=== PATIENT | female | born 1955 | race Caucasian/White ===

== ENCOUNTER → 2017-04-22 | Outpatient (CLI) | payer OTHER ==
--- NOTE | 2017-04-22 15:20 | DIAGNOSTIC IMAGING REPORT ---
CHEST 2 VIEWS ROUTINE CLINICAL HISTORY: Persistent cough COMPARISON STUDY: No previous studies for comparison. FINDINGS: There is a mild scoliosis. The heart is normal in size. There is no failure. There is no focal pulmonary consolidation. There are no pleural effusions.[ IMPRESSION: No active disease in the chest. Electronically signed by: Duane Geiger M.D. 04/22/2017 3:19 PM Dictated Date/Time: 04/22/2017 3:18 PM
== END | disposition home or self-care (01) ==
LOC: C.RADBC 14:37
PROVIDERS: ATTEND Family Medicine
DX: R05 Cough (principal)

== ENCOUNTER → 2017-07-12 | Outpatient (CLI) | payer OTHER ==
[2017-07-12 13:32] LABS: BASO % 0.8 %; BASO ABS # 0.04 K/uL (0-0.2); EOS % 2.8 %; EOS ABS # 0.15 K/uL (0-0.5); HEMATOCRIT 40.5 % (37-47); HEMOGLOBIN 13.7 g/dL (12.0-16.0); LYMPH % 19.9 %; LYMPH ABS # 1.05 K/uL (1.2-3.4); MEAN CELL VOLUME 89.4 fL (80-100); MEAN CORPUSCULAR HEMOGLOBIN 30.2 pg (25-34); MEAN CORPUSCULAR HGB CONC 33.8 g/dl (32-36); MEAN PLATELET VOLUME 9.8 fL (7.4-10.4); MONO % 14.6 %; MONO ABS # 0.77 K/uL (0.11-0.59); NEUT % 61.9 %; NEUT ABS # 3.27 K/uL (1.4-6.5); PLATELET COUNT 209 K/uL (130-400); RED CELL DISTRIBUTION WIDTH CV 13.8 % (11.5-14.5); RED CELL DISTRIBUTION WIDTH SD 45.1 fL (36.4-46.3); WHITE BLOOD COUNT 5.28 K/uL (4.8-10.8)
[2017-07-12 14:22] LABS: ALBUMIN 3.9 gm/dl (3.4-5.0); ALT/SGPT 33 U/L (12-78); AST/SGOT 30 U/L (15-37); BLOOD UREA NITROGEN 20 mg/dl (7-18); CALCIUM 9.4 mg/dl (8.5-10.1); CARBON DIOXIDE 27 mmol/L (21-32); CREATININE 1.13 mg/dl (0.60-1.20); GLUCOSE 100 mg/dl (70-99); SODIUM 138 mmol/L (136-145)
[2017-07-12 14:24] LABS: ALKALINE PHOSPHATASE 54 U/L (45-117); TOTAL PROTEIN 7.2 gm/dl (6.4-8.2)
== END | disposition home or self-care (01) ==
LOC: C.LABBC 10:30
PROVIDERS: ATTEND Psychiatry & Neurology Neurology
DX: G35 Multiple sclerosis (principal)

== ENCOUNTER → 2017-08-05 | Outpatient (CLI) | payer OTHER ==
--- NOTE | 2017-08-05 19:30 | DIAGNOSTIC IMAGING REPORT ---
MRI OF THE BRAIN WITHOUT CONTRAST CLINICAL HISTORY: G35 Multiple sclerosis TRANSIENT LOSS OF VISION. COMPARISON STUDY: None. FINDINGS: Sagittal T1, axial diffusion, proton density and T2 weighted axial, coronal FLAIR, and axial T1-weighted images were acquired. No intra or extra-axial mass lesions are visualized Axial diffusion-weighted images reveal no evidence of acute or subacute infarction. There is no evidence of ventricular dilatation. Proton density T2-weighted and FLAIR images reveal several foci of increased T2 and FLAIR signal within the white matter. The largest lesions are a 6 mm focus adjacent to the atrium of the right lateral ventricle, as well as a 7 mm focus just medial to the left external capsule. The lesions are nonspecific in appearance, and could be secondary to small vessel disease, or multiple sclerosis given that this patient carries this diagnosis There are no abnormal flow voids. Inflammatory changes are present within the maxillary sinuses. There is a small left maxillary sinus air-fluid level.] Sinus demonstrates mucosal thickening and several inflammatory polyp/retention cysts IMPRESSION: 1. No evidence of intracranial mass in this noncontrast study 2. No evidence of acute or subacute infarction 3. Nonspecific foci of increased T2 and FLAIR signal within the periventricular regions 4. Inflammatory changes in the maxillary sinuses Electronically signed by: Duane Geiger M.D. 08/05/2017 7:29 PM Dictated Date/Time: 08/05/2017 7:23 PM
== END | disposition home or self-care (01) ==
LOC: C.MRI 18:41
PROVIDERS: ATTEND Psychiatry & Neurology Neurology
DX: G35 Multiple sclerosis (principal); J34.89 Other specified disorders of nose and nasal sinuses

== ENCOUNTER → 2017-09-11 | Outpatient (CLI) | payer OTHER ==
--- NOTE | 2017-09-11 14:45 | DIAGNOSTIC IMAGING REPORT ---
SOFT TISS HEAD/NECK-THYROID CLINICAL HISTORY: 62 years-old Female with THYROID NODULE. Palpable thyroid nodule COMPARISON: None available TECHNIQUE: Multiple real time sonographic images of the thyroid were obtained accessing rice scale appearance and color doppler flow. FINDINGS: MEASUREMENTS: Right lobe: 4.4 x 1.9 x 2.0 cm Left lobe: 5.0 x 1.6 x 1.6 cm Isthmus: 0.2 cm PARENCHYMA: The thyroid parenchymal echotexture is diffusely heterogeneous. NODULES: Mixed echogenicity solid nodule of the posterior right thyroid measures 1.1 x 0.5 x 0.6 cm which is partially isoechoic and partially hypoechoic to adjacent thyroid parenchyma. No suspicious thyroid nodules are identified. There is a normal-appearing lymph node of the right neck within the area of palpable concern, 1.4 x 0.4 x 0.7 cm IMPRESSION: 1. 1.1 cm solid nodule of the posterior right thyroid lobe. No suspicious thyroid nodules identified. 2. Normal-appearing non-enlarged lymph node of the right neck may correlate with the area of palpable concern. The above report was generated using voice recognition software. It may contain grammatical, syntax or spelling errors. Electronically signed by: Mikael Aj M.D. 09/11/2017 2:44 PM Dictated Date/Time: 09/11/2017 2:41 PM
== END | disposition home or self-care (01) ==
LOC: C.ULTR 13:59
PROVIDERS: ATTEND Family Medicine
DX: E04.1 Nontoxic single thyroid nodule (principal); R22.1 Localized swelling, mass and lump, neck

== ENCOUNTER → 2017-10-07 | Outpatient (CLI) | payer OTHER ==
--- NOTE | 2017-10-08 07:40 | MAMMOGRAPHY REPORT ---
BILATERAL DIGITAL SCREENING MAMMOGRAM TOMOSYNTHESIS WITH CAD: 10/07/2017 CLINICAL HISTORY: Asymptomatic. Personal history of breast cancer. TECHNIQUE: Bilateral CC and MLO views of the breasts with and without implant displacement views were obtained. Tomosynthesis was also performed on the implant displaced views. Current study was also evaluated with a Computer Aided Detection (CAD) system. COMPARISON: Comparison is made to exams dated: 08/22/2015 mammogram and 08/23/2016 mammogram. BREAST COMPOSITION: There are scattered areas of fibroglandular density in both breasts. FINDINGS: There is expected architectural distortion in the 12:00 anterior/subareolar right breast at the site of prior surgery. There are a few benign rim calcifications in the right breast. Stable o mary 4 mm focal asymmetry in the subareolar left breast. No suspicious spiculated or irregular mass, architectural distortion or cluster of suspicious microcalcifications is seen. IMPRESSION: ACR BI-RADS CATEGORY 1: NEGATIVE There is no mammographic evidence of malignancy. A 1 year screening mammogram is recommended. The pa tient will receive written notification of the results. Approximately 10% of breast cancers are not detected with mammography. A negative mammographic report should not delay biopsy if a clinically suggestive mass is present. Chelita Cotter M.D. ay/:10/07/2017 15:06:37 Dinkey Skinner: Ayala BLACKMAN)(M), [facility] letter sent: Normal 1/2 BI-RADS Code: ACR BI-RADS Category 1: Negative
== END | disposition home or self-care (01) ==
LOC: C.MAMM 12:19
PROVIDERS: ATTEND Family Medicine
DX: Z12.31 Encounter for screening mammogram for malignant neoplasm of breast (principal); Z85.3 Personal history of malignant neoplasm of breast

== ENCOUNTER → 2017-11-18 | Outpatient (CLI) | payer OTHER | END | disposition home or self-care (01) | LOC: C.MAMM 13:10 | PROVIDERS: ATTEND Family Medicine | DX: M85.851 Other specified disorders of bone density and structure, right thigh (principal); E83.52 Hypercalcemia ==

== ENCOUNTER → 2017-11-18 | Outpatient (CLI) | payer OTHER ==
[2017-11-18 16:44] LABS: BLOOD UREA NITROGEN 12 mg/dl (7-18); CALCIUM 10.2 mg/dl (8.5-10.1); CARBON DIOXIDE 26 mmol/L (21-32); CREATININE 0.86 mg/dl (0.60-1.20); GLUCOSE 87 mg/dl (70-99); POTASSIUM 4.4 mmol/L (3.5-5.1); SODIUM 140 mmol/L (136-145)
== END | disposition home or self-care (01) ==
LOC: C.LAB 14:16
PROVIDERS: ATTEND Family Medicine
DX: E83.52 Hypercalcemia (principal)

== ENCOUNTER → 2018-01-17 | Outpatient (CLI) | payer OTHER | END | disposition home or self-care (01) | LOC: C.LAB 12:59 | PROVIDERS: ATTEND Family Medicine | DX: I10 Essential (primary) hypertension (principal) ==

== ENCOUNTER 2019-12-04 10:37 | Observation (INO) ==
--- NOTE | 2019-12-04 11:24 | Emergency Department Note ---
History of Present Illness General Chief complaint: Confusion Stated complaint: CONFUSED Time Seen by Provider: 12/04/19 10:51 History of Present Illness Provider complaint: Confusion/aphasia Onset (ago): minute(s) 45 Location: head Maximum Pain Intensity: 0 Current Pain Intensity: 0 Associated symptoms: + confusion; no chest pain, no cough, no diaphoresis, no fever/chills, no headaches, no seizure, no shortness of breath, no syncope and no weakness Home Medications Home Medications Medication Instructions Recorded Confirmed Type iwdozogmcejz-ckfglxef-nrbhm acid 1 cap PO DAILY cap 02/26/19 12/04/19 History 400 mcg-vitamin K 80 mcg capsule amlodipine 10 mg tablet 10 mg PO DAILY 03/04/19 12/04/19 History ascorbic acid (vitamin C) [Vitamin 500 mg PO DAILY 12/04/19 12/04/19 History C With Ama Hips] cholecalciferol (vitamin D3) 25 mcg PO DAILY 12/04/19 12/04/19 History [Vitamin D3] dexamethasone 8 mg PO UD 12/04/19 12/04/19 History diphenoxylate-atropine 1 tab PO QID PRN 12/04/19 12/04/19 History enoxaparin [Lovenox] 60 mg SUBCUT DAILY 12/04/19 12/04/19 History lidocaine-prilocaine 1 applic TOPICAL UD 12/04/19 12/04/19 History morphine 15 mg PO QAM 12/04/19 12/04/19 History morphine 30 mg PO QPM 12/04/19 12/04/19 History omeprazole 40 mg PO DAILY 12/04/19 12/04/19 History ondansetron HCl 8 mg PO Q8 PRN 12/04/19 12/04/19 History oxycodone-acetaminophen 1 - 1.5 tab PO Q4H PRN 12/04/19 12/04/19 History prochlorperazine [Compro] 25 mg [place] Q12 PRN 12/04/19 12/04/19 History prochlorperazine maleate 10 mg PO Q6H PRN 12/04/19 12/04/19 History sennosides [senna] 8.6 mg PO BID 12/04/19 12/04/19 History simvastatin 10 mg PO PM 12/04/19 12/04/19 History vitamin B complex 1 tab PO DAILY 12/04/19 12/04/19 History Allergies Allergy/AdvReac Type Severity Reaction Status Date / Time cat dander Allergy Unknown Verified 12/04/19 11:35 No Known Drug Allergies Allergy Unknown Verified 12/04/19 11:35 Past Med/Surg History Medical History Decreased GFR (Inactive) Hypercalcemia (Chronic) Hypercholesterolemia Hypertension Insomnia Multiple sclerosis (Chronic) Osteopenia (Chronic) Pancreas cancer TIA (transient ischemic attack) Surgical History H/O breast augmentation Hx of lumpectomy S/P hysterectomy Family History Mother Breast cancer Father Hypertension Grandmother (Maternal) Stroke Grandmother (Paternal) Leukemia Grandfather (Paternal) Cancer Aunt Breast cancer Pancreatic cancer Uncle Prostate cancer Unknown Pulmonary embolism Social History Feels Safe at Home: Yes Smoking Status: Former smoker Hx Alcohol Use: Yes (social) Review of Systems A total of 10 systems reviewed and were otherwise negative Physical Exam Vital Signs Vital Signs - 24 hr 12/04/19 10:40 12/04/19 11:13 12/04/19 11:16 Temperature 36.8 C Temperature Source Oral Pulse Rate 98 H 95 H 89 Pulse Rate [Left Finger] Pulse Rate from SpO2 Sensor 90 88 Respiratory Rate 18 35 H 21 Respiratory Depth Normal Blood Pressure 101/65 102/72 Blood Pressure [Left Arm] Blood Pressure Mean 77 80 Blood Pressure Mean [Left Arm] Pulse Oximetry 99 100 99 Oxygen Delivery Method Room Air Room Air Room Air Sepsis Recent Fever Within 48 Hours No Sepsis New/Unexplained Change in Mental Status No Sepsis Action Taken by Nursing No Action Required 12/04/19 11:30 12/04/19 11:41 12/04/19 12:52 Temperature Temperature Source Pulse Rate 94 H 87 Pulse Rate [Left Finger] 89 Pulse Rate from SpO2 Sensor 94 H 86 Respiratory Rate 23 17 20 Respiratory Depth Blood Pressure 118/56 L Blood Pressure [Left Arm] 111/69 Blood Pressure Mean 78 Blood Pressure Mean [Left Arm] 83 Pulse Oximetry 97 100 96 Oxygen Delivery Method Room Air Room Air Room Air Sepsis Recent Fever Within 48 Hours Sepsis New/Unexplained Change in Mental Status Sepsis Action Taken by Nursing Physical Exam GENERAL: She is oriented to person, place, and time. She appears well-developed and well-nourished. She does not appear distressed. HENT: Exam performed. -Head: Normocephalic and atraumatic. -Right Ear: External ear normal. No mastoid tenderness. -Left Ear: External ear normal. No mastoid tenderness. -Mouth/Throat: The oropharynx is clear and moist. No trismus in the jaw. No dental abscesses or uvula swelling. No oropharyngeal exudate or tonsillar abscesses. EYES: Conjunctivae and EOM are normal. Pupils are equal, round, and reactive to light. Right eye exhibits no discharge. Left eye exhibits no discharge. No scleral icterus. NECK: Normal range of motion. Neck supple. No JVD present. No spinous process tenderness present. No carotid bruit present. No rigidity. No tracheal deviation and normal range of motion present. No Brudzinski's sign and no Kernig's sign noted. CV: Normal rate, regular rhythm, normal heart sounds and intact distal pulses. There is no peripheral edema. Palpable radial pulses bue. PULM/CHEST: Effort normal and breath sounds normal. No respiratory distress. No stridor. She has no wheezes. She has no rales. -Chest Wall: She exhibits no tenderness. ABD: The abdomen is soft. Bowel sounds are normal. She has no distension. No mass is present. There is no tenderness. There is no rebound, no guarding, no Knowles's sign and no tenderness at McBurney's point. Rovsig negative MUSC/SKEL: Normal range of motion. There is no peripheral edema, tenderness or deformity. LYMPH: No cervical adenopathy. NEURO: She is alert and oriented to person, place, and time. She has normal strength. No cranial nerve deficit or sensory deficit. Coordination and gait n ormal. GCS eye subscore is 4. GCS verbal subscore is 5. GCS motor subscore is 6. Cerebellar tests wnl. NIHSS: 0 SKIN: Skin is warm and dry. She is not diaphoretic. PSYCH: She has a normal mood and affect. Behavior is normal. Judgment and thought content normal. Course Course 1100: The patient was evaluated in room C8. A complete history and physical exam was performed. No code stroke called at this time is patient's NIH stroke scale is 0 and she is on Lovenox currently, the patient is not a TPA candidate given her symptoms have improved and be on anticoagulation. EMR reviewed. Patient had a negative carotid ultrasound done on December 01. She had a MRI of the brain done on November 09 which showed no stroke or hemorrhage but did show findings consistent with MS. Echo done on December 01 was also within normal limits. 1251: Vital signs stable. Labs and imaging within normal limits. On repeat assessment, patient has an Angio-Seal 0 with no focal neurological deficit. Patient was to be admitted with TIA. Patient given aspirin in the emergency department. Patient does see oncology at [facility] and there was some confusion about who the patient should be admitted to. Initially contacted the [facility] hospitalist team Roxana Trinidad who did not want to accept the patient as her they stated her PCP should have her admitted to [facility]. Contacted about any hospitalist team who did accept the patient. Administered Medications Discontinued Medications Aspirin (Aspirin) 324 mg PO NOW STA Stop: 12/04/19 12:01 Last Admin: 12/04/19 12:06 Dose: 324 mg Documented by: [id number] Aspirin (Aspirin) 324 mg PO NOW STA Stop: 12/04/19 12:10 Last Admin: 12/04/19 12:14 Dose: Not Given Documented by: [id number] Medical Decision Making Laboratory Data Result diagrams: 12/04/19 11:08 12/04/19 11:08 Lab Results 12/04/19 12/04/19 12/04/19 Range/Units 11:08 11:08 11:08 WBC 5.84 (4.8-10.8) K/uL RBC 3.36 L (4.2-5.4) M/uL Hgb 9.7 L (12.0-16.0) g/dL Hct 31.1 L (37-47) % MCV 92.6 (80-100) fL MCH 28.9 (25-34) pg MCHC 31.2 L (32-36) g/dL RDW Std Deviation 56.7 H (36.4-46.3) fL RDW Coeff of Rina 17.3 H (11.5-14.5) % Plt Count 115 L (130-400) K/uL MPV 10.7 H (7.4-10.4) fL Immature Gran % (Auto) 0.2 % Neut % (Auto) 88.8 % Lymph % (Auto) 9.2 % [place] % (Auto) 0.3 % Eos % (Auto) 1.2 % Baso % (Auto) 0.3 % Immature Gran # (Auto) 0.01 (0.00-0.02) K/uL Neut # (Auto) 5.18 (1.4-6.5) K/uL Lymph # (Auto) 0.54 L (1.2-3.4) K/uL [place] # (Auto) 0.02 L (0.11-0.59) K/uL Eos # (Auto) 0.07 (0-0.5) K/uL Baso # (Auto) 0.02 (0-0.2) K/uL PT 10.5 (9.0-12.0) Seconds INR 1.0 (0.9-1.1) APTT 23.9 (21.0-31.0) Seconds PTT Ratio 0.9 Sodium (136-145) mmol/L Potassium (3.5-5.1) mmol/L Chloride (98-107) mmol/L Carbon Dioxide (21-32) mmol/L Anion Gap (3-11) BUN (7-18) mg/dl Creatinine (0.6-1.2) mg/dl Est Cr Clr Drug Dosing ml/min Est GFR ( Amer) Est GFR (Non-Af Amer) BUN/Creatinine Ratio (10-20) Glucose (70-99) mg/dl Calcium (8.5-10.1) mg/dl Magnesium (1.8-2.4) mg/dl Total Bilirubin (0.2-1) mg/dl AST (15-37) U/L ALT (12-78) U/L Alkaline Phosphatase (45-117) U/L Troponin I (0-0.045) ng/ml Total Protein (6.4-8.2) gm/dl Albumin (3.4-5.0) gm/dl Globulin (2.5-4.0) gm/dl Albumin/Globulin Ratio (0.9-2) Blood Type O Negative Antibody Screen NEGATIVE 12/04/19 Range/Units 11:08 WBC (4.8-10.8) K/uL RBC (4.2-5.4) M/uL Hgb (12.0-16.0) g/dL Hct (37-47) % MCV (80-100) fL MCH (25-34) pg MCHC (32-36) g/dL RDW Std Deviation (36.4-46.3) fL RDW Coeff of Rina (11.5-14.5) % Plt Count (130-400) K/uL MPV (7.4-10.4) fL Immature Gran % (Auto) % Neut % (Auto) % Lymph % (Auto) % [place] % (Auto) % Eos % (Auto) % Baso % (Auto) % Immature Gran # (Auto) (0.00-0.02) K/uL Neut # (Auto) (1.4-6.5) K/uL Lymph # (Auto) (1.2-3.4) K/uL [place] # (Auto) (0.11-0.59) K/uL Eos # (Auto) (0-0.5) K/uL Baso # (Auto) (0-0.2) K/uL PT (9.0-12.0) Seconds INR (0.9-1.1) APTT (21.0-31.0) Seconds PTT Ratio Sodium 139 (136-145) mmol/L Potassium 4.2 (3.5-5.1) mmol/L Chloride 107 (98-107) mmol/L Carbon Dioxide 28 (21-32) mmol/L Anion Gap 4.0 (3-11) BUN 10 (7-18) mg/dl Creatinine 0.66 (0.6-1.2) mg/dl Est Cr Clr Drug Dosing 72.4 ml/min Est GFR ( Amer) 106.7 Est GFR (Non-Af Amer) 92.1 BUN/Creatinine Ratio 15.9 (10-20) Glucose 119 H (70-99) mg/dl Calcium 9.6 (8.5-10.1) mg/dl Magnesium 1.9 (1.8-2.4) mg/dl Total Bilirubin 0.7 (0.2-1) mg/dl AST 36 (15-37) U/L ALT 86 H (12-78) U/L Alkaline Phosphatase 73 (45-117) U/L Troponin I 0.045 (0-0.045) ng/ml Total Protein 6.4 (6.4-8.2) gm/dl Albumin 3.1 L (3.4-5.0) gm/dl Globulin 3.3 (2.5-4.0) gm/dl Albumin/Globulin Ratio 0.9 (0.9-2) Blood Type Antibody Screen Imaging Data Radiologist's Impression: CT SCAN OF THE BRAIN WITHOUT IV CONTRAST CLINICAL HISTORY: Strokelike symptoms. COMPARISON STUDY: MRI of the brain dated 11/10/2019. TECHNIQUE: Unenhanced axial CT scan of the brain is performed from the vertex to the skull base. A dose lowering technique was utilized adhering to the principles of ALARA. CT DOSE: 537.48 mGy.cm FINDINGS: Brain parenchyma: There is minimal microangiopathic change. There is no hemorrhage, mass effect, or evidence of acute territorial ischemia by CT criteria. Trivedi-white matter differentiation is preserved. No extra-axial fluid collection is seen. Ventricles, sulci, cisterns: Normal in configuration. Intracranial vasculature: There is atherosclerotic calcification of the cavernous carotid arteries. Calvarium: Unremarkable. Sinuses and mastoids: The visualized paranasal sinuses are clear. The mastoid air cells are well pneumatized. Orbits: The bony orbits are grossly intact. IMPRESSION: There is no hemorrhage, mass effect, or evidence of acute territorial ischemia by CT criteria. ACT 112: Negative or not required by law. Electronically signed by: Tal Joshua M.D. 12/04/2019 11:41 AM Dictated: 12/04/19 1139 Transcribed: 12/04/19 1139 ECG Data Indication: + weakness Rate (beats per minute): 90 Rhythm: + normal sinus ECG Intervals/blocks: + Normal QRS, + Normal TX and + Normal QT-c ECG ST segments: + Normal ST segments MDM Narrative 1100: The patient was evaluated in room C8. A complete history and physical exam was performed. No code stroke called at this time is patient's NIH stroke scale is 0 and she is on Lovenox currently, the patient is not a TPA candidate given her symptoms have improved and be on anticoagulation. EMR reviewed. Patient had a negative carotid ultrasound done on December 01. She had a MRI of the brain done on November 09 which showed no stroke or hemorrhage but did show findings consistent with MS. Echo done on December 01 was also within normal limits. 1251: Vital signs stable. Labs and imaging within normal limits. On repeat assessment, patient has an Angio-Seal 0 with no focal neurological deficit. Patient was to be admitted with TIA. Patient given aspirin in the emergency department. Patient does see oncology at [facility] and there was some confusion about who the patient should be admitted to. Initially contacted the [facility] hospitalist team Roxana Trinidad who did not want to accept the patient as her they stated her PCP should have her admitted to [facility]. Contacted about any hospitalist team who did accept the patient. Impression & Plan TIA (transient ischemic attack) Discharge Plan Visit Data Chief Complaint: Confusion Stated Complaint: CONFUSED ED Provider: Wilmer Monreal Discharge Problem: TIA (transient ischemic attack) Patient Disposition: Being Evaluated by Hospitalist Forms Stand Alone Forms: [facility] Prescriptions Prescriptions: No Action Multi For Her 50 Plus 400-80 mcg capsule 1 cap PO DAILY RF: 0 amlodipine 10 mg tablet 10 mg PO DAILY RF: 0 sennosides [senna] 8.6 mg tablet 8.6 mg PO BID RF: 0 ondansetron HCl 8 mg tablet 8 mg PO Q8 PRN (Reason: Nausea) RF: 0 simvastatin 10 mg tablet 10 mg PO PM RF: 0 diphenoxylate-atropine 2.5-0.025 mg tablet 1 tab PO QID PRN (Reason: Diarrhea) RF: 0 prochlorperazine maleate 10 mg tablet 10 mg PO Q6H PRN (Reason: Nausea) RF: 0 morphine 30 mg tablet extended release 30 mg PO QPM RF: 0 omeprazole 40 mg capsule,delayed release(DR/EC) 40 mg PO DAILY RF: 0 lidocaine-prilocaine 2.5-2.5 % cream 1 applic topical UD RF: 0 oxycodone-acetaminophen 5-325 mg tablet 1 - 1.5 tab PO Q4H PRN (Reason: Pain) RF: 0 ascorbic acid (vitamin C) [Vitamin C With Ama Hips] 500 mg Tablet 500 mg PO DAILY RF: 0 prochlorperazine [Compro] 25 mg suppository 25 mg [place] Q12 PRN (Reason: Nausea) RF: 0 dexamethasone 4 mg tablet 8 mg PO UD RF: 0 vitamin B complex Tablet 1 tab PO DAILY RF: 0 morphine 15 mg tablet extended release 15 mg PO QAM RF: 0 enoxaparin [Lovenox] 60 mg/0.6 mL syringe 60 mg subcut DAILY RF: 0 cholecalciferol (vitamin D3) [Vitamin D3] 25 mcg (1,000 unit) Tablet 25 mcg PO DAILY RF: 0 Referrals Referrals: Veronique Sutton DO [Primary Care Provider] -
[2019-12-04 11:27] LABS: Basophils # (auto) 0.02 K/uL (0-0.2); Basophils % (auto) 0.3 %; Eosinophils # (auto) 0.07 K/uL (0-0.5); Eosinophils % (auto) 1.2 %; Hematocrit (blood only) 31.1 % (37-47); Hemoglobin 9.7 g/dL (12.0-16.0); Immature Granulocytes # (auto) 0.01 K/uL (0.00-0.02); Immature Granulocytes % (auto) 0.2 %; Lymphocytes # (auto) 0.54 K/uL (1.2-3.4); Lymphocytes % (auto) 9.2 %; Mean Corpuscular Hemoglobin 28.9 pg (25-34); Mean Corpuscular Hgb Conc 31.2 g/dL (32-36); Mean Corpuscular Volume 92.6 fL (80-100); Mean Platelet Volume 10.7 fL (7.4-10.4); Monocytes # (auto) 0.02 K/uL (0.11-0.59); Monocytes % (auto) 0.3 %; Neutrophils # (auto) 5.18 K/uL (1.4-6.5); Neutrophils % (auto) 88.8 %; Platelet Count 115 K/uL (130-400); RDW Coefficient of Variation 17.3 % (11.5-14.5); RDW Standard Deviation 56.7 fL (36.4-46.3); Red Blood Count 3.36 M/uL (4.2-5.4); White Blood Count 5.84 K/uL (4.8-10.8)
[2019-12-04 11:38] LABS: Partial Thromboplastin Ratio 0.9; Partial Thromboplastin Time 23.9 Seconds (21.0-31.0); Prothrombin Time 10.5 Seconds (9.0-12.0)
--- NOTE | 2019-12-04 11:42 | CT Scan Report ---
CT SCAN OF THE BRAIN WITHOUT IV CONTRAST CLINICAL HISTORY: Strokelike symptoms. COMPARISON STUDY: MRI of the brain dated 11/10/2019. TECHNIQUE: Unenhanced axial CT scan of the brain is performed from the vertex to the skull base. A d ose lowering technique was utilized adhering to the principles of ALARA. CT DOSE: 537.48 mGy.cm FINDINGS: Brain parenchyma: There is minimal microangiopathic change. There is no hemorrhage, mass effect, or e vidence of acute territorial ischemia by CT criteria. Trivedi-white matter differentiation is preserved. No extra-axial fluid collection is seen. Ventricles, sulci, cisterns: Normal in configuration. Intracranial vasculature: There is atherosclerotic calcification of the cavernous carotid arteries. Calvarium: Unremarkable. Sinuses and mastoids: The visualized paranasal sinuses are clear. The mastoid air cells are well pneu matized. Orbits: The bony orbits are grossly intact. IMPRESSION: There is no hemorrhage, mass effect, or evidence of acute territorial ischemia by CT heike rosales. ACT 112: Negative or not required by law. Electronically signed by: Tal Joshua M.D. 12/04/2019 11:41 AM
[2019-12-04 11:48] LABS: Albumin Level 3.1 gm/dl (3.4-5.0); BUN Creatinine Ratio 15.9 (10-20); Calcium 9.6 mg/dl (8.5-10.1); Creatinine Clr Calc Pharmacy 72.4 ml/min; Est GFR (African American) 106.7; Est GFR (Non-African American) 92.1; Magnesium 1.9 mg/dl (1.8-2.4); Potassium 4.2 mmol/L (3.5-5.1)
[2019-12-04 11:53] LABS: Albumin Globulin Ratio 0.9 (0.9-2); Bilirubin,Total 0.7 mg/dl (0.2-1); Globulin 3.3 gm/dl (2.5-4.0); Total Protein 6.4 gm/dl (6.4-8.2); Troponin I 0.045 ng/ml (0-0.045)
[2019-12-04] MEDS ORDERED: ASPIRIN CHEW 324 MG PO STA ×2 (12:00→12:09)
--- NOTE | 2019-12-04 13:33 | History & Physical Report ---
Date of Service December 04, 2019 Assessment & Plan (1) Expressive aphasia: This patient is a 64-year-old female with a history of metastatic pancreatic cancer, HTN, hyperlipidemia, MS/loan optic neuritis, who presents to the ER with a recurrence for the second time in the last month of 1.5 hours of expressive aphasia. This exact same presentation happened about 1 month ago and she was seen by her PCP who referred her to neurology where she underwent a series of tests as an outpatient very recently. She had an MRI of the brain a month ago which showed plaques consistent with MS unchanged from previous. She had an echocardiogram with bubble study which was normal just 2 days ago, a Holter monitor for 48 hours which showed first-degree AV block and isolated nonsustained SVT. She had a carotid ultrasound which was negative. I discussed the case with Dr. Villagomez who had seen her in the office from a telehealth visit last week and was familiar with her. She recommended bringing her in for observation and get an EEG, CT angiogram of the head and neck, and ruling out infectious causes which could potentially cause pseudo-relapse of MS versus TIA. She was started on Lovenox 60 mg SQ every 24 hours at that time by neurology given hypercoagulable state with metastatic pancreatic cancer in the setting of TIA. -Admit on observation to medical floor with telemetry for monitoring for arrhythmia --Will discuss with neurology about increasing her to therapeutic dosing on Lovenox-could do either 90 mg SQ once daily versus 60 mg SQ every 12 hours -No antiplatelet needed as per neurology -On statin-consider increasing to higher intensity dose-would discuss with neurology -Continue good blood pressure control -We will get CT angiogram head/neck -EEG as above -Check UA and blood cultures as per neurology to rule out infectious causes as she is currently immunocompromised on chemotherapy. Infection could cause a pseudo-relapse of her MS -No need for echo as she just had 1 2 days ago which was normal -No need for lipid panel and she just had a lipid panel which was normal in the last 2 weeks -Hemoglobin A1c was also in the prediabetic range recently -Neurochecks, neuro consult, PT/OT/speech therapy evaluations requested (2) TIA (transient ischemic attack): -Work-up as noted above (3) Hypercholesterolemia: -Continue simvastatin and consider increasing to higher intensity (4) Hypertension: Blood pressures controlled -Continue amlodipine (5) Multiple sclerosis: Diagnosed with this at age 54 after having isolated left optic neuritis Was on Avonex for 10 years and recently stopped this when she was diagnosed with pancreatic cancer before starting her chemotherapy -Recent brain MRI showed plaques consistent with such which are stable from previous -Follows with neurology (6) Pancreas cancer: Metastatic with malignant ascites, currently on chemotherapy, follows with [facility] oncology in [place] -She is unsure of the names of her chemotherapeutic agents at this time She is on a regimen where she gets chemotherapy once per week for 3 weeks and then 1 week off-she is currently on her week off -Antiemetics as needed -Immunosuppressed (7) Anemia: Hemoglobin is down to 9.7 from 11.7 last month-likely secondary to chemotherapy -Follow CBC and provide transfusional support as needed (8) Thrombocytopenia: Platelets down to 115-likely secondary to chemotherapy -Follow CBC -Okay to continue Lovenox (9) DVT prophylaxis: Lovenox SQ Disposition-admit on observation to medical floor with telemetry Full code-although patient is wanting to think about it and may change herself to a DNR given her poor prognosis overall with metastatic pancreatic cancer Her daughter, Genny, is her healthcare denial management representative if she cannot speak for herself History of Present Illness Chief Complaint: Difficulty speaking Primary Care Provider: Veronique Sutton, This patient is a 64-year-old female with a history of metastatic pancreatic cancer, HTN, hyperlipidemia, MS/loan optic neuritis, who presents to the ER with a recurrence for the second time in the last month of 1.5 hours of expressive aphasia. She was speaking to her daughter on the phone who noticed that she was able to get her words out. That daughter called the daughter who lives locally to come and check on her. She brought her mom into the hospital as she was not able to say her own name or date of . She had trouble telling the nurse in triage that she had pancreatic cancer and other basic knowledge. The patient remembers all of this and remembers feeling frustrated that she could not get her words out. The daughter at the bedside reports there was never any facial droop, no slurred speech, no focal weakness. The patient denies any numbness or tingling, no weakness, no loss of balance. Denies headache or visual changes. The symptoms are all completely resolved now. This exact same presentation happened about 1 month ago and she was seen by her PCP who referred her to neuro logy where she underwent a series of tests as an outpatient very recently. She had an MRI of the brain a month ago which showed plaques consistent with MS unchanged from previous. She had an echocardiogram with bubble study which was normal just 2 days ago, a Holter monitor for 48 hours which showed first-degree AV block and isolated nonsustained SVT. She had a carotid ultrasound which was negative. I discussed the case with Dr. Villagomez who had seen her in the office from a telehealth visit last week and was familiar with her. She recommended bringing her in for observation and get an EEG, CT angiogram of the head and neck, and ruling out infectious causes which could potentially cause pseudo-relapse of MS versus TIA. Allergies Allergy/AdvReac Type Severity Reaction Status Date / Time cat dander Allergy Unknown Verified 12/04/19 11:35 No Known Drug Allergies Allergy Unknown Verified 12/04/19 11:35 Home Medications Home Medications Medication Instructions Recorded Confirmed Type idsjrfaczocb-qlpmswop-jtuji acid 1 cap PO DAILY cap 02/26/19 12/04/19 History 400 mcg-vitamin K 80 mcg capsule amlodipine 10 mg tablet 10 mg PO DAILY 03/04/19 12/04/19 History ascorbic acid (vitamin C) [Vitamin 500 mg PO DAILY 12/04/19 12/04/19 History C With Ama Hips] cholecalciferol (vitamin D3) 25 mcg PO DAILY 12/04/19 12/04/19 History [Vitamin D3] dexamethasone 8 mg PO UD 12/04/19 12/04/19 History diphenoxylate-atropine 1 tab PO QID PRN 12/04/19 12/04/19 History enoxaparin [Lovenox] 60 mg SUBCUT DAILY 12/04/19 12/04/19 History lidocaine-prilocaine 1 applic TOPICAL UD 12/04/19 12/04/19 History morphine 15 mg PO QAM 12/04/19 12/04/19 History morphine 30 mg PO QPM 12/04/19 12/04/19 History omeprazole 40 mg PO DAILY 12/04/19 12/04/19 History ondansetron HCl 8 mg PO Q8 PRN 12/04/19 12/04/19 History oxycodone-acetaminophen 1 - 1.5 tab PO Q4H PRN 12/04/19 12/04/19 History prochlorperazine [Compro] 25 mg FL Q12 PRN 12/04/19 12/04/19 History prochlorperazine maleate 10 mg PO Q6H PRN 12/04/19 12/04/19 History sennosides [senna] 8.6 mg PO BID 12/04/19 12/04/19 History simvastatin 10 mg PO PM 12/04/19 12/04/19 History vitamin B complex 1 tab PO DAILY 12/04/19 12/04/19 History Past Med/Surg History Medical History Decreased GFR (Inactive) Hypercalcemia (Chronic) Hypercholesterolemia Hypertension Insomnia Multiple sclerosis (Chronic) Osteopenia (Chronic) Pancreas cancer TIA (transient ischemic attack) (Acute) Surgical History H/O breast augmentation Hx of lumpectomy S/P hysterectomy Family History Mother Breast cancer Father Hypertension Grandmother (Maternal) Stroke Grandmother (Paternal) Leukemia Grandfather (Paternal) Cancer Aunt Breast cancer Pancreatic cancer Uncle Prostate cancer Unknown Pulmonary embolism Social History Preferred Language: Georgian Communication Ability: Effective Binder Fixer Required: No Beliefs That Will Affect Care: None Current Living Situation: Alone current occupational status: retired 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 No coughs or cold symptoms. She has chronic abdominal pain that is no worse than usual and she takes long-acting morphine and short-acting Percocet for this. Denies diarrhea or constipation, no blood in her stool. Denies any urinary symptoms such as dysuria urgency. Physical Exam Constitutional: WD/WN, vitals as above (With alopecia) Eyes: PERRL, conjunctivae normal, anicteric sclerae EOM intact bilaterally ENMT: external ear and nose normal, oropharynx normal Neck: trachea midline, no thyromegaly Respiratory: normal respiratory effort, lungs clear to auscultation Cardiovascular: RRR, no murmur, no edema Chest (Breasts): Chest: normal inspection of chest Gastrointestinal (Abdomen): Inspection/Auscultation: abdomen normal to inspection and normal bowel sounds; abdomen not distended Percussion/Palpation: + abdomen tender (Mild diffuse pain without guarding or rebound) and abdomen soft; no guarding and abdomen not rigid Musculoskeletal: Extremities: extremities normal to inspection; no cyanosis and no clubbing Skin: no rashes, warm and dry Neurologic: CN's II-XI intact bilaterally, deep tendon reflexes 2+ bilaterally, moves all extremities and awake; no focal motor deficits, no meningeal signs and not confused Speech / Cognition: normal speech and no expressive aphasia Motor/Sensory: no tremor, normal movement, no pronator drift and no sensory deficit (Intact to light touch throughout upper and lower extremities bilaterally) Coordination: normal dhldfv-al-xicx test, normal mnej-kh-grot test and normal rapid alternating movements Psychiatric: A+Ox3, euthymic affect Lymphatic: no lymphedema Results & Data Results & Data ([facility]) Vital Signs (Past 12 Hours) Vital Signs Temp Pulse Pulse Resp BP BP Pulse Ox 12/04/19 12:52 89 20 111/69 96 12/04/19 11:41 87 17 118/56 L 100 12/04/19 11:30 94 H 23 97 12/04/19 11:16 89 21 99 12/04/19 11:13 95 H 35 H 102/72 100 12/04/19 10:40 36.8 C 98 H 18 101/65 99 Laboratory Results 12/04/19 12/04/19 12/04/19 Range/Units 13:30 11:08 11:08 WBC (4.8-10.8) K/uL RBC (4.2-5.4) M/uL Hgb (12.0-16.0) g/dL Hct (37-47) % MCV (80-100) fL MCH (25-34) pg MCHC (32-36) g/dL RDW Std Deviation (36.4-46.3) fL RDW Coeff of Rina (11.5-14.5) % Plt Count (130-400) K/uL MPV (7.4-10.4) fL Immature Gran % (Auto) % Neut % (Auto) % Lymph % (Auto) % [place] % (Auto) % Eos % (Auto) % Baso % (Auto) % Immature Gran # (Auto) (0.00-0.02) K/uL Neut # (Auto) (1.4-6.5) K/uL Lymph # (Auto) (1.2-3.4) K/uL [place] # (Auto) (0.11-0.59) K/uL Eos # (Auto) (0-0.5) K/uL Baso # (Auto) (0-0.2) K/uL PT 10.5 (9.0-12.0) Seconds INR 1.0 (0.9-1.1) APTT 23.9 (21.0-31.0) Seconds PTT Ratio 0.9 Sodium 139 (136-145) mmol/L Potassium 4.2 (3.5-5.1) mmol/L Chloride 107 (98-107) mmol/L Carbon Dioxide 28 (21-32) mmol/L Anion Gap 4.0 (3-11) BUN 10 (7-18) mg/dl Creatinine 0.66 (0.6-1.2) mg/dl Est Cr Clr Drug Dosing 72.4 ml/min Est GFR ( Amer) 106.7 Est GFR (Non-Af Amer) 92.1 BUN/Creatinine Ratio 15.9 (10-20) Glucose 119 H (70-99) mg/dl Calcium 9.6 (8.5-10.1) mg/dl Magnesium 1.9 (1.8-2.4) mg/dl Total Bilirubin 0.7 (0.2-1) mg/dl AST 36 (15-37) U/L ALT 86 H (12-78) U/L Alkaline Phosphatase 73 (45-117) U/L Troponin I 0.045 (0-0.045) ng/ml Total Protein 6.4 (6.4-8.2) gm/dl Albumin 3.1 L (3.4-5.0) gm/dl Globulin 3.3 (2.5-4.0) gm/dl Albumin/Globulin Ratio 0.9 (0.9-2) Urine Color Yellow Urine Appearance Clear (Clear) Urine pH >= 9.0 H (4.5-7.5) Ur Specific Archer 1.010 (1.000-1.030) Urine Protein Negative (Negative) Urine Glucose (UA) Negative (Negative) Urine Ketones Negative (Negative) Urine Blood Negative (Negative) Urine Nitrite Negative (Negative) Urine Bilirubin Negative (Negative) Urine Urobilinogen Negative (Negative) Ur Leukocyte Esterase Negative (Negative) Blood Type Antibody Screen 12/04/19 12/04/19 Range/Units 11:08 11:08 WBC 5.84 (4.8-10.8) K/uL RBC 3.36 L (4.2-5.4) M/uL Hgb 9.7 L (12.0-16.0) g/dL Hct 31.1 L (37-47) % MCV 92.6 (80-100) fL MCH 28.9 (25-34) pg MCHC 31.2 L (32-36) g/dL RDW Std Deviation 56.7 H (36.4-46.3) fL RDW Coeff of Rina 17.3 H (11.5-14.5) % Plt Count 115 L (130-400) K/uL MPV 10.7 H (7.4-10.4) fL Immature Gran % (Auto) 0.2 % Neut % (Auto) 88.8 % Lymph % (Auto) 9.2 % [place] % (Auto) 0.3 % Eos % (Auto) 1.2 % Baso % (Auto) 0.3 % Immature Gran # (Auto) 0.01 (0.00-0.02) K/uL Neut # (Auto) 5.18 (1.4-6.5) K/uL Lymph # (Auto) 0.54 L (1.2-3.4) K/uL [place] # (Auto) 0.02 L (0.11-0.59) K/uL Eos # (Auto) 0.07 (0-0.5) K/uL Baso # (Auto) 0.02 (0-0.2) K/uL PT (9.0-12.0) Seconds INR (0.9-1.1) APTT (21.0-31.0) Seconds PTT Ratio Sodium (136-145) mmol/L Potassium (3.5-5.1) mmol/L Chloride (98-107) mmol/L Carbon Dioxide (21-32) mmol/L Anion Gap (3-11) BUN (7-18) mg/dl Creatinine (0.6-1.2) mg/dl Est Cr Clr Drug Dosing ml/min Est GFR ( Amer) Est GFR (Non-Af Amer) BUN/Creatinine Ratio (10-20) Glucose (70-99) mg/dl Calcium (8.5-10.1) mg/dl Magnesium (1.8-2.4) mg/dl Total Bilirubin (0.2-1) mg/dl AST (15-37) U/L ALT (12-78) U/L Alkaline Phosphatase (45-117) U/L Troponin I (0-0.045) ng/ml Total Protein (6.4-8.2) gm/dl Albumin (3.4-5.0) gm/dl Globulin (2.5-4.0) gm/dl Albumin/Globulin Ratio (0.9-2) Urine Color Urine Appearance (Clear) Urine pH (4.5-7.5) Ur Specific Archer (1.000-1.030) Urine Protein (Negative) Urine Glucose (UA) (Negative) Urine Ketones (Negative) Urine Blood (Negative) Urine Nitrite (Negative) Urine Bilirubin (Negative) Urine Urobilinogen (Negative) Ur Leukocyte Esterase (Negative) Blood Type O Negative Antibody Screen NEGATIVE Diagnostic Findings CT SCAN OF THE BRAIN WITHOUT IV CONTRAST CLINICAL HISTORY: Strokelike symptoms. COMPARISON STUDY: MRI of the brain dated 11/10/2019. TECHNIQUE: Unenhanced axial CT scan of the brain is performed from the vertex to the skull base. A dose lowering technique was utilized adhering to the principles of ALARA. CT DOSE: 537.48 mGy.cm FINDINGS: Brain parenchyma: There is minimal microangiopathic change. There is no hemorrhage, mass effect, or evidence of acute territorial ischemia by CT criteria. Trivedi-white matter differentiation is preserved. No extra-axial fluid collection is seen. Ventricles, sulci, cisterns: Normal in configuration. Intracranial vasculature: There is atherosclerotic calcification of the cavernous carotid arteries. Calvarium: Unremarkable. Sinuses and mastoids: The visualized paranasal sinuses are clear. The mastoid air cells are well pneumatized. Orbits: The bony orbits are grossly intact. IMPRESSION: There is no hemorrhage, mass effect, or evidence of acute territorial ischemia by CT criteria. Code Status & VTE Plan Code Status Full code, although reports she wants to think about it and may change her mind VTE Prophylaxis Plan VTE Prophylaxis will be ordered: Yes PG Care Time/CCT Total # of Minutes Spent Total Time Spent with Patient: Total time spent is greater than 50% in coordination of care (as documented) at patient's floor/unit and/or counseling patient: Coding Level of Care Code 12087 OBS Care - Level 3 Diagnoses Expressive aphasia R47.01 TIA (transient ischemic attack) G45.9 Hypercholesterolemia E78.00 Hypertension I10 Multiple sclerosis G35 Pancreas cancer C25.9 Anemia D64.9 Thrombocytopenia D69.6 DVT prophylaxis Z29.9
[2019-12-04] MEDS ORDERED: OPTIRAY 320 125ml IV PRN (14:20)
[2019-12-04 14:31] LABS: Appearance Urine Clear (Clear); Bilirubin Urine Negative (Negative); Blood Urine Negative (Negative); Color Urine Yellow; Glucose Urine UA Negative (Negative); Ketones Urine Negative (Negative); Leukocyte Esterase Urine Negative (Negative); Nitrite Urine Negative (Negative); Protein Urine Negative (Negative); Urobilinogen Urine Negative (Negative); pH Urine >= 9.0 (4.5-7.5)
--- NOTE | 2019-12-04 14:36 | CT Scan Report ---
CT angio neck with con CLINICAL HISTORY: Transient ischemic attack COMPARISON STUDY: Carotid Doppler ultrasound performed December 02, 2019 TECHNIQUE: CT angiography was performed from the aortic arch to the skull base. MIP imaging was perfo rmed. The patient was scanned in a dynamic helical fashion during intravenous administration of 116 c c of Optiray 320. A dose lowering technique was utilized adhering to the principles of ALARA. CT DOSE: Technique: CT angiogram of the carotid and vertebral arteries was obtained using intravenous contrast and 3-D reconstruction. NASCET criteria was utilized. Findings: The right carotid revealed no evidence of aneurysm and no evidence of dissection. There is no evidenc e of hemodynamic significant stenosis. The left carotid revealed no evidence of hemodynamic significant stenosis. There is no evidence of an eurysm. There is no evidence of dissection. Evaluation the vertebral arteries is moderately limited secondary to to artifact from extensive parav ertebral venous collaterals. There is no convincing evidence of vertebral artery stenosis. There is n o evidence of dissection. There is no evidence of occlusion. Extensive paravertebral venous collaterals. The findings suggest a narrowing of the left innominate v ein. IMPRESSION: No evidence of hemodynamically significant carotid or vertebral artery stenosis. No evidence of disse ction. ACT 112: Negative or not required by law. Electronically signed by: Duane Geiger M.D. 12/04/2019 2:35 PM
--- NOTE | 2019-12-04 14:49 | CT Scan Report ---
NECK CTA HISTORY: Transient ischemic attack. Stroke like symptoms. TECHNIQUE: Multiaxial CT images of the neck were performed following the intravenous administration o f contrast to evaluate the major cervical vessels. Maximum intensity projection images were also obta ined. All measurements were calculated based on NASCET criteria. A dose lowering technique was utili zed adhering to the principles of ALARA. COMPARISON STUDY: Head CT 12/04/2019. FINDINGS: The aortic arch and proximal great vessels are widely patent. There is no significant sten osis, occlusion, or dissection identified within the bilateral common carotid, internal carotid, or v ertebral arteries. Mild calcified plaque within the right carotid bifurcation. The proximal left comm on carotid artery and proximal bilateral vertebral arteries are not well visualized due to the extens figueroa venous contamination/artifact. IMPRESSION: No significant stenosis, occlusion, or dissection identified within the visualized carotid or vertebr al arteries. ACT 112: Negative or not required by law. Electronically signed by: Rod Goddard M.D. 12/04/2019 2:47 PM
[2019-12-04] MEDS ORDERED: POLYETHYLENE (MIRALAX) 17 GM PACK PO PRN (15:48)
[2019-12-04] MEDS ORDERED: PROCHLORPERAZINE MALEATE 10 MG TAB PO PRN (15:48)
[2019-12-04] MEDS ORDERED: ACETAMINOPHEN 325 MG TAB PO PRN (15:48)
[2019-12-04] MEDS ORDERED: OXYCODONE/ACETAMINOPHEN 5mg/325mg TAB PO PRN (15:48)
[2019-12-04] MEDS ORDERED: ONDANSETRON INJ 2 MG/ML 2 ML VIAL IV PRN (15:48)
[2019-12-04] MEDS ORDERED: MAGNESIUM HYDROXIDE SUSP 30 ML UDC PO PRN (15:48)
[2019-12-04] MEDS ORDERED: PHARMACIST DISCHARGE MED REC CONSULT PRN (15:48)
[2019-12-04] MEDS ORDERED: DIPHENOXYLATE/ATROPINE 2.5/0.025MG TAB PO PRN (15:48)
[2019-12-04] MEDS ORDERED: ONDANSETRON 4 MG OD TAB PO PRN (15:55)
[2019-12-04] MEDS: OXYCODONE/ACETAMINOPHEN 5mg/325mg TAB PO PRN (16:50)
[2019-12-04] MEDS ORDERED: ENOXAPARIN 100 MG/1ML SYR SQ SCH (18:00)
--- NOTE | 2019-12-04 18:02 | Neurology Consultation ---
Date of Consultation December 04, 2019 Assessment & Plan (1) TIA (transient ischemic attack): Mariela Hendrix is a 64 yo woman w/ PMH of MS (previously on avonex), HTN, HLD, insomnia and recent diagnosis of pancreatic cancer s/p chemo who presents to neurology clinic for evaluation of possible TIA. # Possible TIA: transient confusion/word finding difficulty in the setting of recent dx of cancer. Most likely due to hypercoagulability of cancer - routine EEG to r/o seizure tendency in setting of known MS - CTA head and neck - MRI brain w/ and w/o contrast - UA/blood culture to r/o infection TIA Management: - Acute treatment: ASA - Continuous cardiac monitoring - Vitals, Neurochecks, NIHSS per unit routine - BP parameters: SBP CAP 220, hold home anti-hypertensives for permissive HTN, IV Labetalol/Hydralazine PRN - Consult speech, PT, OT for supportive management - Will camp counselor concerning stroke education, smoking cessation, healthy diet, physical activity, weight loss - Follow up with PCP for assistance with outpatient goals (BP <135/85, LDL <70, A1c <7) - Follow up in neurology clinic as previously scheduled Secondary Stroke Prevention: - Antiplatelet: n/a - Anticoagulation: continue lovenox 1.5mg/kg (ensure that dose is appropriately weight based, prefers once daily dosing) - Statin: Atorvastatin 40mg vs. 80 po daily HTN: - BP parameters, as above - Hold home BP meds (amlodipine) for now in favor of permissive HTN FEN/GI: - Diet: Cardiac HH diet and PO meds given absence of bulbar signs or symptoms - Monitor lytes and replete PRN Glucose Control: - Sliding scale insulin and accuchecks per primary team to avoid hyperglycemia # MS: ok to hold further DMT in the setting of pancreatic cancer given risks of immunosuppression with ongoing chemotherapy treatment and infection risks. Recurrent transient confusion with any difficulty could be a pseudo-relapse given the recent diagnosis of cancer and associated stress with that and she reports that she did have confusion and word finding difficulty as her initial presenting MS symptom. Thank you for this interesting consult. Plan of care discussed with primary team. Please call or text with questions. (2) Pancreas cancer: (3) Hypercholesterolemia: (4) Hypertension: (5) Multiple sclerosis: History of Present Illness Attending Physician: Gabi Phillips MD History of Present Illness Mariela Hendrix is a 64 yo woman w/ PMH of MS (previously on avonex), HTN, HLD, insomnia and recent diagnosis of pancreatic cancer s/p chemo who presents to [facility] after transient word finding difficulty and confusion. 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 Mariela reports that she was in her normal state of health until 12/04/19 when she was talking with 1 of her daughters on the phone and was noticed to have word finding difficulty. Daughter who accompanies her reports that she examined her mother that time and found that she was unable to get out most words and also appeared confused (did not know her date of or where she was at). Denied having any numbness, tingling, weakness or facial droop with symptoms. No loss of consciousness, tongue biting or loss of bowel/bladder. Entire event lasted approximately 1.5 hours and daughter reports that her mom is now back to baseline. She was seen last week via neurology telehealth visit with a similar episode occurring in October 2019 after which she was started on Lovenox. She denies missing any doses of Lovenox and reports that her last chemotherapy was on Sunday December 01, 2019. She has been recently started on morphine and oxycodone for pain management. Review of systems positive for mild lower abdominal pain but otherwise no complaints at this time. Labs in the ED notable for WBC 5.4, hemoglobin 9.7, platelets 115, INR 1.0, BMP unremarkable creatinine 0.66 and glucose 119, ALT mildly elevated at 86, troponin negative, INR 1, TSH within normal. Recent outpatient workup for TIA in October 2019 includes: - A1c 6.2, LDL 65, TSH WNL, UA pyuria but no growth on urine culture - carotid dopplers: No hemodynamically significant stenosis in carotid artery -TTE: EF 70 to 75%, mild LVH, no PFO, sclerotic aortic valve without significant stenosis -48-hour Holter monitor: Sinus rhythm with borderline first-degree AV block, isolated nonsustained episodes of SVT noted. Patient Features: Admission NIHSS: 0 Admission Modified Ana Scale: 0-1 Time patient last seen well: ~10am on 12/04/19 Wake up stroke: No Intubation status: Not intubated Stroke Risk Factors: Hypertension: Y Hyperlipidemia: Y Atrial Fib: N Tobacco: Y, prior Diabetes: N Taking NOAC or warfarin: Y, lovenox Allergies Allergy/AdvReac Type Severity Reaction Status Date / Time cat dander Allergy Unknown Verified 12/04/19 11:35 No Known Drug Allergies Allergy Unknown Verified 12/04/19 11:35 Home Medications Home Medications Medication Instructions Recorded Confirmed Type fvdhdxcygaby-zshbsbgj-oqbaa acid 1 cap PO DAILY cap 02/26/19 12/04/19 History 400 mcg-vitamin K 80 mcg capsule amlodipine 10 mg tablet 10 mg PO DAILY 03/04/19 12/04/19 History ascorbic acid (vitamin C) [Vitamin 500 mg PO DAILY 12/04/19 12/04/19 History C With Ama Hips] cholecalciferol (vitamin D3) 25 mcg PO DAILY 12/04/19 12/04/19 History [Vitamin D3] dexamethasone 8 mg PO UD 12/04/19 12/04/19 History diphenoxylate-atropine 1 tab PO QID PRN 12/04/19 12/04/19 History enoxaparin [Lovenox] 60 mg SUBCUT DAILY 12/04/19 12/04/19 History lidocaine-prilocaine 1 applic TOPICAL UD 12/04/19 12/04/19 History morphine 15 mg PO QAM 12/04/19 12/04/19 History morphine 30 mg PO QPM 12/04/19 12/04/19 History omeprazole 40 mg PO DAILY 12/04/19 12/04/19 History ondansetron HCl 8 mg PO Q8 PRN 12/04/19 12/04/19 History oxycodone-acetaminophen 1 - 1.5 tab PO Q4H PRN 12/04/19 12/04/19 History prochlorperazine [Compro] 25 mg PA Q12 PRN 12/04/19 12/04/19 History prochlorperazine maleate 10 mg PO Q6H PRN 12/04/19 12/04/19 History sennosides [senna] 8.6 mg PO BID 12/04/19 12/04/19 History simvastatin 10 mg PO PM 12/04/19 12/04/19 History vitamin B complex 1 tab PO DAILY 12/04/19 12/04/19 History Patient History Medical History Decreased GFR (Inactive) Hypercalcemia (Chronic) Hypercholesterolemia Hypertension Insomnia Multiple sclerosis (Chronic) Osteopenia (Chronic) Pancreas cancer TIA (transient ischemic attack) (Acute) Surgical History H/O breast augmentation Hx of lumpectomy S/P hysterectomy Family History Mother Breast cancer Father Hypertension Grandmother (Maternal) Stroke Grandmother (Paternal) Leukemia Grandfather (Paternal) Cancer Aunt Breast cancer Pancreatic cancer Uncle Prostate cancer Unknown Pulmonary embolism Social History Preferred Language: Singaporean Communication Ability: Effective Asphalt Blender Required: No Beliefs That Will Affect Care: None Current Living Situation: Alone current occupational status: retired 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 Exam (Neuro) Physical Exam: General Exam: GEN: NAD, sitting down in examination bed. HEENT: No conjunctival injection, no rhinorrhea. CV: RRR on monitor, no significant edema. PULM: Nonlabored respirations on room air. Neuro Exam: MS: Awake and Alert. Oriented to person, place, and date. Speech fluent and appropriate without dysarthria or paraphasic errors. Language intact including naming, comprehension, repetition. Cognition and memory grossly intact. Attention intact. No neglect. CN: Visual cantrell full. No extinction to double simultaneous stimuli. No optic disc edema noted on fundoscopic exam. PERRLA OU. EOMI without nystagmus. Facial sensation intact to LT. Facial muscles full and symmetric. Hearing intact to conversation. Uvula midline with symmetric palatal elevation. Shoulder shrug normal. Tongue midline. MOTOR: Normal bulk and tone. No pronator drift. BUE strength 5/5 at deltoids, biceps, triceps, wrist flexors and extensors, and finger flexors bilaterally. BLE strength 5/5 at iliopsoas, hamstrings, quadriceps, tibialis anterior, and gastrocnemius bilaterally. REFLEXES: 2+ at biceps, triceps, brachioradialis, patella, and Achilles bilaterally. Flexor plantar responses bilaterally. SENSORY: Intact to LT/vibration/temperature throughout, no extinction to double simultaneous stimuli. COORDINATION: No dysmetria or ataxia on sgnkne-zw-odpf bilaterally. Normal [place] bilaterally. GAIT: Deferred due to physical status. NIH STROKE SCALE 1A. Level of Consciousness (0-3) = 0 1B. LOC Questions (0-2) = 0 1C. LOC Commands (0-2) = 0 2. Best Horizontal Gaze (0-2) = 0 3. Visual Cantrell (0-3) = 0 4. Facial Palsy (0-3) = 0 5. Motor Arm Right (0-4) = 0 Left (0-4) = 0 6. Motor Leg Right (0-4) = 0 Left (0-4) = 0 7. Limb Ataxia (0-2) = 0 8. Sensory (0-2) = 0 9. Best Language (0-3) = 0 10. Dysarthria (0-2) = 0 11. Extinction and Inattention (0-2) = 0 NIHSS TOTAL = 0 Results & Data ([facility]) Vital Signs (Past 12 Hours) Vital Signs Temp Pulse Pulse Resp BP BP Pulse Ox 12/04/19 15:30 37.2 C 88 18 108/59 L 94 12/04/19 15:20 80 18 112/73 98 12/04/19 14:09 79 16 109/59 L 97 12/04/19 12:52 89 20 111/69 96 12/04/19 11:41 87 17 118/56 L 100 12/04/19 11:30 94 H 23 97 12/04/19 11:16 89 21 99 12/04/19 11:13 95 H 35 H 102/72 100 12/04/19 10:40 36.8 C 98 H 18 101/65 99 PG Care Time/CCT Total # of Minutes Spent Total Time Spent with Patient: Total time spent is greater than 50% in coordination of care (as documented) at patient's floor/unit and/or counseling patient: Coding Level of Care Code 96517 Initial Inpt Care Lvl 3 Diagnoses TIA (transient ischemic attack) G45.9 Pancreas cancer C25.9 Hypercholesterolemia E78.00 Hypertension I10 Multiple sclerosis G35
[2019-12-04] MEDS ORDERED: SIMVASTATIN 10 MG TAB PO SCH (21:00)
[2019-12-04] MEDS ORDERED: ATORVASTATIN 40 MG TAB PO SCH (21:00)
[2019-12-04] MEDS ORDERED: MoRPHine SULFATE CR 15 MG TABCR PO SCH (21:00)
[2019-12-04] MEDS ORDERED: ZOLPIDEM TARTRATE 5 MG TAB PO PRN (21:00)
[2019-12-04] MEDS ORDERED: GADOBUTROL 65ML VIAL IV PRN (21:01)
[2019-12-04] MEDS: SENNA 8.6 MG TAB PO SCH (21:36)
[2019-12-05] MEDS: OXYCODONE/ACETAMINOPHEN 5mg/325mg TAB PO PRN (00:16)
[2019-12-05] MEDS ORDERED: HEPARIN 100 UNIT/ML 5ML FLUSH FLUSH PRN (00:32)
[2019-12-05 06:36] LABS: Basophils # (auto) 0.02 K/uL (0-0.2); Basophils % (auto) 0.5 %; Eosinophils # (auto) 0.12 K/uL (0-0.5); Eosinophils % (auto) 2.9 %; Hematocrit (blood only) 26.3 % (37-47); Hemoglobin 8.4 g/dL (12.0-16.0); Immature Granulocytes # (auto) 0.01 K/uL (0.00-0.02); Immature Granulocytes % (auto) 0.2 %; Lymphocytes # (auto) 1.23 K/uL (1.2-3.4); Lymphocytes % (auto) 29.6 %; Mean Corpuscular Hemoglobin 29.6 pg (25-34); Mean Corpuscular Hgb Conc 31.9 g/dL (32-36); Mean Corpuscular Volume 92.6 fL (80-100); Mean Platelet Volume 10.1 fL (7.4-10.4); Monocytes # (auto) 0.02 K/uL (0.11-0.59); Monocytes % (auto) 0.5 %; Neutrophils # (auto) 2.76 K/uL (1.4-6.5); Neutrophils % (auto) 66.3 %; Platelet Count 146 K/uL (130-400); RDW Coefficient of Variation 17.4 % (11.5-14.5); RDW Standard Deviation 57.6 fL (36.4-46.3); Red Blood Count 2.84 M/uL (4.2-5.4); White Blood Count 4.16 K/uL (4.8-10.8)
--- NOTE | 2019-12-05 07:01 | Magnetic Resonance Report ---
MRI OF THE BRAIN COMBO CLINICAL HISTORY: Transient ischemic attack. History of pancreatic cancer. COMPARISON STUDY: CT of the brain dated 12/04/2019. TECHNIQUE: MRI of the brain was performed utilizing various T1 and T2-weighted sequences in the axial , sagittal, and coronal planes. Contrast-enhanced sequences were acquired following the administratio n of 6 cc of Gadavist. FINDINGS: Brain parenchyma: There are punctate foci of restricted diffusion identified within the posterior par ietal lobe bilaterally. No additional foci of restricted diffusion are identified. There is age-relat ed involutional change noting mild subcortical and periventricular microangiopathic disease. There is no hemorrhage or mass effect. No enhancing mass lesion is identified on the postcontrast images. Gra y-white matter differentiation is preserved. No extra-axial fluid collection is seen. There is mild c erebellar tonsillar ectopia. Ventricles, sulci, and cisterns: Prominent secondary to involutional change. Pituitary and sella: Unremarkable. Intracranial vasculature: Normal flow voids are maintained at the skull base. Orbits: The bony orbits are grossly intact. Orbital contents are normal in appearance. Sinuses and mastoids: Clear. Calvarium: Unremarkable. Cervical cord: Partially visualized cervical spinal cord is normal in morphology and signal intensity . IMPRESSION: 1. There are 2 punctate foci of restricted diffusion identified in the posterior parietal lobe bilate rally. These are nonspecific and could represent acute to subacute lacunar infarcts. 2. No additional foci of restricted diffusion are identified. 3. There is no hemorrhage, mass effect, or enhancing mass lesion. ACT 112: Negative or not required by law. Electronically signed by: Tal Joshua M.D. 12/05/2019 6:59 AM
--- NOTE | 2019-12-05 07:03 | Electrocardiogram Report ---
Test Reason : Blood Pressure : / mmHG Vent. Rate : 090 BPM Atrial Rate : 090 BPM P-R Int : 158 ms QRS Dur : 082 ms QT Int : 354 ms P-R-T Axes : -06 014 029 degrees QTc Int : 433 ms Poor data quality, interpretation may be adversely affected Normal sinus rhythm Cannot rule out Anterior infarct , age undetermined Abnormal ECG No previous ECGs available Confirmed by Taz Dejesus ([id number]) on 12/05/2019 7:03:18 AM Referred By: REFERRED SELF Confirmed By:Taz Dejesus
[2019-12-05 07:10] LABS: BUN Creatinine Ratio 17.1 (10-20); Creatinine Clr Calc Pharmacy 93.7 ml/min; Est GFR (African American) 116.1; Est GFR (Non-African American) 100.2; Potassium 4.1 mmol/L (3.5-5.1)
--- NOTE | 2019-12-05 08:04 | Hospitalist Progress Note ---
Date of Service December 05, 2019 Assessment & Plan (1) Expressive aphasia: This patient is a 64-year-old female with a history of metastatic pancreatic cancer, HTN, hyperlipidemia, MS/loan optic neuritis, who presents to the ER with a recurrence for the second time in the last month of 1.5 hours of expressive aphasia. This exact same presentation happened about 1 month ago and she was seen by her PCP who referred her to neurology where she underwent a series of tests as an outpatient very recently. She had an MRI of the brain a month ago which showed plaques consistent with MS unchanged from previous. She had an echocardiogram with bubble study which was normal just 2 days ago, a Holter monitor for 48 hours which showed first-degree AV block and isolated nonsustained SVT. She had a carotid ultrasound which was negative. I discussed the case with Dr. Villagomez who had seen her in the office from a telehealth visit last week and was familiar with her. She recommended bringing her in for observation and get an EEG, CT angiogram of the head and neck, and ruling out infectious causes which could potentially cause pseudo-relapse of MS versus TIA. She was started on Lovenox 1.5 mg /kg SQ daily by neurology given hypercoagulable state with metastatic pancreatic cancer in the setting of TIA. MRi good 12/04/19 IMPRESSION: 1. There are 2 punctate foci of restricted diffusion identified in the posterior parietal lobe bilaterally. These are nonspecific and could represent acute to subacute lacunar infarcts. 2. No additional foci of restricted diffusion are identified. 3. There is no hemorrhage, mass effect, or enhancing mass lesion. CTA head and neck 12/04/19 IMPRESSION: No significant stenosis, occlusion, or dissection identified within the visualized carotid or vertebral arteries. -EEG pending - UA negative -pending blood cultures no other infection suggestion -No need for echo as she just had 1 2 days ago which was normal -No need for lipid panel and she just had a lipid panel which was normal in the last 2 weeks -Hemoglobin A1c was also in the prediabetic range recently -Neurochecks, neuro consult, PT/OT/speech therapy evaluations requested (2) TIA (transient ischemic attack): -Work-up as noted above (3) Hypercholesterolemia: change statin to high potency (4) Hypertension: Blood pressures controlled -Continue amlodipine (5) Multiple sclerosis: Diagnosed with this at age 54 after having isolated left optic neuritis Was on Avonex for 10 years and recently stopped this when she was diagnosed with pancreatic cancer before starting her chemotherapy -Recent brain MRI showed plaques consistent with such which are stable from previous -Follows with neurology (6) Pancreas cancer: Metastatic with malignant ascites, currently on chemotherapy, follows with [facility] oncology in [place] -She is unsure of the names of her chemotherapeutic agents She is on a regimen where she gets chemotherapy once per week for 3 weeks and then 1 week off-she is currently on her week off -Antiemetics as needed -Immunosuppressed (7) Anemia: Hemoglobin is down to 9.7 from 11.7 last month-likely secondary to chemotherapy associated anemia -Follow CBC and provide transfusional support as needed (8) Thrombocytopenia: Platelets initialy down to 115-likely secondary to chemotherapy, now 146 -Okay to continue Lovenox (9) DVT prophylaxis: Lovenox SQ Disposition-admit on observation to medical floor with telemetry Full code-although patient is wanting to think about it and may change herself to a DNR given her poor prognosis overall with metastatic pancreatic cancer Her daughter, Genny, is her healthcare accounts payable representative if she cannot speak for herself Admission and Anticipated Discharge Date Admission Date: December 04, 2019 Results & Data Results & Data ([facility]) Vital Signs (Past 12 Hours) Vital Signs Temp Pulse Pulse Resp BP Pulse Ox 12/05/19 07:29 98.1 F 72 16 98/59 L 99 12/05/19 05:17 89 12/05/19 00:03 98.2 F 73 20 96/59 L 93 PG Care Time/CCT Total # of Minutes Spent Total Time Spent with Patient: Total time spent is greater than 50% in coordination of care (as documented) at patient's floor/unit and/or counseling patient: Coding Diagnoses Expressive aphasia R47.01 TIA (transient ischemic attack) G45.9 Hypercholesterolemia E78.00 Hypertension I10 Multiple sclerosis G35 Pancreas cancer C25.9 Anemia D64.9 Thrombocytopenia D69.6 DVT prophylaxis Z29.9
[2019-12-05] MEDS ORDERED: PANTOprazole 40 MG TAB PO SCH (09:00)
[2019-12-05] MEDS ORDERED: MoRPHine SULFATE CR 15 MG TABCR PO SCH (09:00)
[2019-12-05] MEDS ORDERED: CHOLECALCIFEROL 1,000 UNITS 25 MCG TAB PO SCH (09:00)
[2019-12-05] MEDS ORDERED: ASPIRIN 81 MG ECTAB PO SCH ×2 (09:00)
[2019-12-05] MEDS ORDERED: VITAMIN B COMPLEX TAB PO SCH (09:00)
[2019-12-05] MEDS ORDERED: ASCORBIC ACID 500 MG TAB PO SCH (09:00)
[2019-12-05] MEDS ORDERED: AMLODIPINE BESYLATE 5 MG TAB PO SCH (09:00)
[2019-12-05] MEDS ORDERED: MULTIVITAMIN TAB PO SCH (09:00)
[2019-12-05] MEDS: SENNA 8.6 MG TAB PO SCH (09:34)
--- NOTE | 2019-12-05 09:49 | Neurology Progress Note ---
Date of Service December 05, 2019 Assessment & Plan (1) TIA (transient ischemic attack): Mariela Hendrix is a 64 yo woman w/ PMH of MS (previously on avonex), HTN, HLD, insomnia and recent diagnosis of pancreatic cancer s/p chemo who presents to neurology clinic for evaluation of possible TIA. # Possible TIA: transient confusion/word finding difficulty in the setting of recent dx of cancer. Most likely due to hypercoagulability of cancer - routine EEG to r/o seizure tendency in setting of known MS - CTA head and neck: bilateral submarine worker (congenital variant), ?right vertebral artery occlusion (difficult to fully assess though due to poorly timed contrast load), otherwise no LVO, high grade stenosis or anuerysm - MRI brain w/ and w/o contrast: mild SVID, no clear acute infarct (does have bilateral parietal lobe DWI hyperintensities however no clear ADC correlate), stable MS plaque load from 10/2019 scan - UA: no infection - blood culture: NGTD TIA Management: - BP parameters: SBP CAP 180 - Consult speech, PT, OT for supportive management - Counselled concerning stroke education, smoking cessation, healthy diet, physical activity, weight loss - Follow up with PCP for assistance with outpatient goals (BP <135/85, LDL <70, A1c <7) - Follow up in neurology clinic as previously scheduled Secondary Stroke Prevention: - Antiplatelet: n/a - Anticoagulation: continue lovenox 1.5mg/kg (ensure that dose is appropriately weight based, prefers once daily dosing) - Statin: ok to continue simvastatin 10mg daily HTN: - BP parameters, as above - Hold home BP meds given ongoing hypotension FEN/GI: - Diet: Cardiac HH diet and PO meds given absence of bulbar signs or symptoms - Monitor lytes and replete PRN Glucose Control: - Sliding scale insulin and accuchecks per primary team to avoid hyperglycemia # MS: ok to hold further DMT in the setting of pancreatic cancer given risks of immunosuppression with ongoing chemotherapy treatment and infection risks. Recurrent transient confusion with word finding difficulty could be a pseudo- relapse given the recent diagnosis of cancer and associated stress with that and she reports that she did have confusion and word finding difficulty as her initial presenting MS symptom. No new MS lesions noted on MRI. Thank you for this interesting consult. Plan of care discussed with primary team. Please call or text with questions. She is ok for discharge today. Can have outpatient EEG if needed (would need order on discharge for this). (2) Pancreas cancer: (3) Hypercholesterolemia: (4) Hypertension: (5) Multiple sclerosis: Admission and Anticipated Discharge Date Admission Date: December 04, 2019 Subjective NAEs overnight. No further similar events since yesterday afternoon. She did want to let us know that both of her daughters had unprovoked PEs outside the setting of however the had a negative hypercoagulable work-up. Review of Systems Review of Systems: 14 point review of systems completed and negative except as in HPI. Results & Data ([facility]) Vital Signs (Past 12 Hours) Vital Signs Temp Pulse Pulse Resp BP Pulse Ox 12/05/19 07:29 36.7 C 72 16 98/59 L 99 12/05/19 05:17 89 12/05/19 00:03 36.8 C 73 20 96/59 L 93 Exam (Neuro) Physical Exam: General Exam: GEN: NAD, sitting down in examination bed. HEENT: No conjunctival injection, no rhinorrhea. CV: RRR on monitor, no significant edema. PULM: Nonlabored respirations on room air. Neuro Exam: MS: Awake and Alert. Oriented to person, place, and date. Speech fluent and appropriate without dysarthria or paraphasic errors. Language intact including naming, comprehension, repetition. Cognition and memory grossly intact. Attention intact. No neglect. CN: Visual courtney full. No extinction to double simultaneous stimuli. No optic disc edema noted on fundoscopic exam. PERRLA OU. EOMI without nystagmus. Facial sensation intact to LT. Facial muscles full and symmetric. Hearing intact to conversation. Uvula midline with symmetric palatal elevation. Shoulder shrug nor mal. Tongue midline. MOTOR: Normal bulk and tone. No pronator drift. BUE strength 5/5 at deltoids, biceps, triceps, wrist flexors and extensors, and finger flexors bilaterally. BLE strength 5/5 at iliopsoas, hamstrings, quadriceps, tibialis anterior, and gastrocnemius bilaterally. REFLEXES: 2+ at biceps, triceps, brachioradialis, patella, and Achilles bilaterally. Flexor plantar responses bilaterally. SENSORY: Intact to LT/vibration/temperature throughout, no extinction to double simultaneous stimuli. COORDINATION: No dysmetria or ataxia on iieisx-xd-oefy bilaterally. Normal [place] bilaterally. GAIT: Deferred due to physical status. NIH STROKE SCALE 1A. Level of Consciousness (0-3) = 0 1B. LOC Questions (0-2) = 0 1C. LOC Commands (0-2) = 0 2. Best Horizontal Gaze (0-2) = 0 3. Visual Courtney (0-3) = 0 4. Facial Palsy (0-3) = 0 5. Motor Arm Right (0-4) = 0 Left (0-4) = 0 6. Motor Leg Right (0-4) = 0 Left (0-4) = 0 7. Limb Ataxia (0-2) = 0 8. Sensory (0-2) = 0 9. Best Language (0-3) = 0 10. Dysarthria (0-2) = 0 11. Extinction and Inattention (0-2) = 0 NIHSS TOTAL = 0 PG Care Time/CCT Total # of Minutes Spent Total Time Spent with Patient: Total time spent is greater than 50% in coordination of care (as documented) at patient's floor/unit and/or counseling patient: Coding Level of Care Code 89908 Subseq Hosp Care Lvl 3 Diagnoses TIA (transient ischemic attack) G45.9 Pancreas cancer C25.9 Hypercholesterolemia E78.00 Hypertension I10 Multiple sclerosis G35
[2019-12-05] MEDS ORDERED: STROKE PATIENT DISCHARGE STA (13:11)
--- NOTE | 2019-12-05 13:19 | Discharge Summary ---
Date of Service December 05, 2019 Admission HPI Per Admitting Provider This patient is a 64-year-old female with a history of metastatic pancreatic cancer, HTN, hyperlipidemia, MS/loan optic neuritis, who presents to the ER with a recurrence for the second time in the last month of 1.5 hours of expressive aphasia. She was speaking to her daughter on the phone who noticed that she was able to get her words out. That daughter called the daughter who lives locally to come and check on her. She brought her mom into the hospital as she was not able to say her own name or date of . She had trouble telling the nurse in triage that she had pancreatic cancer and other basic knowledge. The patient remembers all of this and remembers feeling frustrated that she could not get her words out. The daughter at the bedside reports there was never any facial droop, no slurred speech, no focal weakness. The patient denies any numbness or tingling, no weakness, no loss of balance. Denies headache or visual changes. The symptoms are all completely resolved now. This exact same presentation happened about 1 month ago and she was seen by her PCP who referred her to neurology where she underwent a series of tests as an outpatient very recently. She had an MRI of the brain a month ago which showed plaques consistent with MS unchanged from previous. She had an echocardiogram with bubble study which was normal just 2 days ago, a Holter monitor for 48 hours which showed first-degree AV block and isolated nonsustained SVT. She had a carotid ultrasound which was negative. I discussed the case with Dr. Villagomez who had seen her in the office from a telehealth visit last week and was familiar with her. She recommended bringing her in for observation and get an EEG, CT angiogram of the head and neck, and ruling out infectious causes which could potentially cause pseudo-relapse of MS versus TIA. Principal Diagnosis TIA pancreatic cancer Multiple sclerosis Discharge Exam The patient appeared well Vital signs as documented. Lungs are clear to auscultation and appear unlabored Cardiac exam, Rhythm is regular.. No murmurs, rubs or gallops. Abdominal exam reveals normal bowel sounds, soft non tender, no masses Extremities are nonedematous and both pedal pulses are normal. Neurologic exam is alert and oriented, no focal loss of strength or sensation, complete resolution of symptoms Skin is without bruises or rashes Psychologically is without concerns for anxiety or depression Discharge Data Allergies Allergy/AdvReac Type Severity Reaction Status Date / Time cat tyder Allergy Unknown Verified 12/04/19 11:35 No Known Drug Allergies Allergy Unknown Verified 12/04/19 11:35 Consultations 12/04/19 12:10 ED Decision to Admit Stat 12/04/19 13:32 Consult Neurology Routine 12/04/19 15:48 Consult Case Management - Discharge Planning Routine Ordered Studies 12/04/19 11:01 CT head/brain wo con Stat 12/04/19 13:50 CT angio head w con Urgent CT angio neck with con Urgent 12/04/19 19:46 MR brain wo/w con Urgent Hospital Course (1) Expressive aphasia: This patient is a 64-year-old female with a history of metastatic pancreatic cancer, HTN, hyperlipidemia, MS/loan optic neuritis, who presents to the ER with a recurrence for the second time in the last month of 1.5 hours of expressive aphasia. This exact same presentation happened about 1 month ago and she was seen by her PCP who referred her to neurology where she underwent a series of tests as an outpatient very recently. She had an MRI of the brain a month ago which showed plaques consistent with MS unchanged from previous. She had an echocardiogram with bubble study which was normal just 2 days ago, a Holter monitor for 48 hours which showed first-degree AV block and isolated nonsustained SVT. She had a carotid ultrasound which was negative. I discussed the case with Dr. Villagomez who had seen her in the office from a telehealth visit last week and was familiar with her. She recommended bringing her in for observation and get an EEG, CT angiogram of the head and neck, and ruling out infectious causes which could potentially cause pseudo-relapse of MS versus TIA. She was started on Lovenox 1.5 mg /kg SQ daily by neurology given hypercoagulable state with metastatic pancreatic cancer in the setting of TIA. MRi good 12/04/19 IMPRESSION: 1. There are 2 punctate foci of restricted diffusion identified in the posterior parietal lobe bilaterally. These are nonspecific and could represent acute to subacute lacunar infarcts.(Neurology Dr Villagomez does not feel these are infarcts) 2. No additional foci of restricted diffusion are identified. 3. There is no hemorrhage, mass effect, or enhancing mass lesion. CTA head and neck 12/04/19 IMPRESSION: No significant stenosis, occlusion, or dissection identified within the visualized carotid or vertebral arteries. -EEG pending at the time of discharge - UA negative since neurology does not feel that these MRI changes are an acute stroke will not place on aspirin or escalate statin dose, recommendation for full dose anticoagulaiton, will use up her 60 mg dose at q12 H and then will thansition to the 90 mg dose once a day -No need for echo as she just had 1 2 days ago which was normal -No need for lipid panel and she just had a lipid panel which was normal in the last 2 weeks -Hemoglobin A1c was also in the prediabetic range recently -Neurochecks, neuro consult, PT/OT/speech therapy evaluations requested (2) TIA (transient ischemic attack): -Work-up as noted above (3) Hypercholesterolemia: remains on zocor (4) Hypertension: Blood pressures controlled -Continue amlodipine (5) Multiple sclerosis: Diagnosed with this at age 54 after having isolated left optic neuritis Was on Avonex for 10 years and recently stopped this when she was diagnosed with pancreatic cancer before starting her chemotherapy -Recent brain MRI showed plaques consistent with such which are stable from previous -Follows with neurology, no new plaques seen on MRI (6) Pancreas cancer: Metastatic with malignant ascites, currently on chemotherapy, follows with [facility] oncology in [place] -She is unsure of the names of her chemotherapeutic agents She is on a regimen where she gets chemotherapy once per week for 3 weeks and then 1 week off-she is currently on her week off -Antiemetics as needed -Immunosuppressed (7) Anemia: Hemoglobin is down to 9.7 from 11.7 last month-likely secondary to chemotherapy associated anemia -Follow CBC and provide transfusional support as needed (8) Thrombocytopenia: Platelets initialy down to 115-likely secondary to chemotherapy, now 146 -Okay to continue Lovenox Total Time Total Time Spent Total Time Spent (In Minutes): It required greater than 30 minutes to prepare this patient for discharge Discharge Plan Discharge Items Patient Disposition: Home - Self-Care Reason For Visit: TIA Discharge Diagnosis: TIA ( transient ischemic attack) which is a intermittent reversible loss of nervous system function with full recovery Activity: Resume your previous activity Non-emergency contact: Primary Care Provider and Neurologist Call non-emergency contact if: you have any medication questions and your symptoms worsen Follow-up/Referrals: Veronique Sutton, [Primary Care Provider] - Diet: Regular Addtl Attending Provider Instructions: you may use your lovenox at home dosed at 60 mg twice a day, until you are finished, then start the Rx given of 90 mg once a day, by your request your Rx was sent to [facility] follow up with neurology and oncology Pending Studies at Discharge: Yes (EEG) Stand-Alone Forms: My [facility] [employer], Smoking Cessation Medications and DC Order Prescriptions: New enoxaparin 100 mg/mL Syringe 90 mg subcut Q24H Qty: 30 RF: 6 Continued Multi For Her 50 Plus 400-80 mcg capsule 1 cap PO DAILY RF: 0 amlodipine 10 mg tablet 10 mg PO DAILY RF: 0 sennosides [senna] 8.6 mg tablet 8.6 mg PO BID RF: 0 ondansetron HCl 8 mg tablet 8 mg PO Q8 PRN (Reason: Nausea) RF: 0 simvastatin 10 mg tablet 10 mg PO PM RF: 0 diphenoxylate-atropine 2.5-0.025 mg tablet 1 tab PO QID PRN (Reason: Diarrhea) RF: 0 prochlorperazine maleate 10 mg tablet 10 mg PO Q6H PRN (Reason: Nausea) RF: 0 morphine 30 mg tablet extended release 30 mg PO QPM RF: 0 omeprazole 40 mg capsule,delayed release(DR/EC) 40 mg PO DAILY RF: 0 lidocaine-prilocaine 2.5-2.5 % cream 1 applic topical UD RF: 0 oxycodone-acetaminophen 5-325 mg tablet 1 - 1.5 tab PO Q4H PRN (Reason: Pain) RF: 0 ascorbic acid (vitamin C) [Vitamin C With Ama Hips] 500 mg Tablet 500 mg PO DAILY RF: 0 prochlorperazine [Compro] 25 mg suppository 25 mg [place] Q12 PRN (Reason: Nausea) RF: 0 dexamethasone 4 mg tablet 8 mg PO UD RF: 0 vitamin B complex Tablet 1 tab PO DAILY RF: 0 morphine 15 mg tablet extended release 15 mg PO QAM RF: 0 cholecalciferol (vitamin D3) [Vitamin D3] 25 mcg (1,000 unit) Tablet 25 mcg PO DAILY RF: 0 Discontinued enoxaparin [Lovenox] 60 mg/0.6 mL syringe 60 mg subcut DAILY RF: 0 Discharge Orders: Discharge Order (Routine); Ordered 06/06/20 Ordered By: Shahid Yan Admission Data Admit Date/Time: 12/04/19 13:32 Attending Provider: Shahid Yan Admit Provider: Gabi Phillips Primary Care Provider: Veronique Sutton Other Providers: Chyna Villagomez ; Gabi Phillips Coding Level of Care Code D/C Day Management >30 mins Diagnoses Expressive aphasia R47.01 TIA (transient ischemic attack) G45.9 Hypercholesterolemia E78.00 Hypertension I10 Multiple sclerosis G35 Pancreas cancer C25.9 Anemia D64.9 Thrombocytopenia D69.6
--- NOTE | 2019-12-05 13:53 | Pharmacy Report ---
Pharmacist Stroke Counseling - Date of Service December 05, 2019 - Scope: Pharmacy has been consulted to provide medication discharge counseling for this patient admitted with transient ischemic attack as per the Pharmacist Discharge Counseling for Stroke Patients Protocol. - Medications on Discharge: Home Medications Medication Instructions Recorded Confirmed [id number]-[id number]-pelfi acid 1 cap PO DAILY cap 02/26/19 12/04/19 400 mcg-vitamin K 80 mcg capsule amlodipine 10 mg tablet 10 mg PO DAILY 03/04/19 12/04/19 ascorbic acid (vitamin C) [Vitamin 500 mg PO DAILY 12/04/19 12/04/19 C With Ama Hips] cholecalciferol (vitamin D3) 25 mcg PO DAILY 12/04/19 12/04/19 [Vitamin D3] dexamethasone 8 mg PO UD 12/04/19 12/04/19 diphenoxylate-atropine 1 tab PO QID PRN 12/04/19 12/04/19 enoxaparin [Lovenox] 60 mg SUBCUT DAILY 12/04/19 12/04/19 lidocaine-prilocaine 1 applic TOPICAL UD 12/04/19 12/04/19 morphine 15 mg PO QAM 12/04/19 12/04/19 morphine 30 mg PO QPM 12/04/19 12/04/19 omeprazole 40 mg PO DAILY 12/04/19 12/04/19 ondansetron HCl 8 mg PO Q8 PRN 12/04/19 12/04/19 oxycodone-acetaminophen 1 - 1.5 tab PO Q4H PRN 12/04/19 12/04/19 prochlorperazine [Compro] 25 mg [place] Q12 PRN 12/04/19 12/04/19 prochlorperazine maleate 10 mg PO Q6H PRN 12/04/19 12/04/19 sennosides [senna] 8.6 mg PO BID 12/04/19 12/04/19 simvastatin 10 mg PO PM 12/04/19 12/04/19 vitamin B complex 1 tab PO DAILY 12/04/19 12/04/19 New Rx's Medication Instructions Recorded enoxaparin 90 mg SUBCUT Q24H #30 dose 12/05/19 - Action: The above medications, specifically ones for stroke treatment/prophylaxis, have been reviewed in detail with the patient and/or patient community health representative(s) prior to discharge. This includes indication, common adverse reactions, drug i nteractions, and medication administration. Medication counseling has been employed using the teach-back method to ensure understanding. - Outcome: The patient and/or patient community health representative(s) have demonstrated understanding of the medications. Additional comments: Spoke over the phone with Mariela Hendrix today. Reviewed medications to prevent stroke including: Simvastatin and Enoxaparin. Discussed why they are being used and common side effects in great detail. Reviewed how to use the medications, what to do if doses are missed, common drug interactions, common side effects, what to watch out for while using the medications, and how to store the medications. Pt verbalized understanding and restated the huang points of each medication. Discussed Lovenox dosing in detail - discussed dose change from 60mg SQ daily to 90mg SQ daily. Patient is to finish her supply of 60mg syringes (she will take BID at 0700 & 1900) and then switch to the 90mg dose once the 60mg supply is finished. Spoke with RN over the phone - she will demonstrate how to waste 10mg of the 100mg enoxaparin syringe to make 990mg dose. Thank you for allowing pharmacy to be involved in the care of this patient. Please call [phone] with any additional questions
--- NOTE | 2019-12-06 13:06 | Electroencephalogram ---
EEG Procedure Note Date of Service December 06, 2019 Start / End Times Start Time: 12:52pm End Time: 1:12pm Referring Physician Shahid Yan History transient word finding difficulty Home Medication List Home Medications Medication Instructions Recorded Confirmed Type [id number]-tcwatwns-lykgn acid 1 cap PO DAILY cap 02/26/19 12/04/19 History 400 mcg-vitamin K 80 mcg capsule amlodipine 10 mg tablet 10 mg PO DAILY 03/04/19 12/04/19 History ascorbic acid (vitamin C) [Vitamin 500 mg PO DAILY 12/04/19 12/04/19 History C With Ama Hips] cholecalciferol (vitamin D3) 25 mcg PO DAILY 12/04/19 12/04/19 History [Vitamin D3] dexamethasone 8 mg PO UD 12/04/19 12/04/19 History diphenoxylate-atropine 1 tab PO QID PRN 12/04/19 12/04/19 History lidocaine-prilocaine 1 applic TOPICAL UD 12/04/19 12/04/19 History morphine 15 mg PO QAM 12/04/19 12/04/19 History morphine 30 mg PO QPM 12/04/19 12/04/19 History omeprazole 40 mg PO DAILY 12/04/19 12/04/19 History ondansetron HCl 8 mg PO Q8 PRN 12/04/19 12/04/19 History oxycodone-acetaminophen 1 - 1.5 tab PO Q4H PRN 12/04/19 12/04/19 History prochlorperazine [Compro] 25 mg SC Q12 PRN 12/04/19 12/04/19 History prochlorperazine maleate 10 mg PO Q6H PRN 12/04/19 12/04/19 History sennosides [senna] 8.6 mg PO BID 12/04/19 12/04/19 History simvastatin 10 mg PO PM 12/04/19 12/04/19 History vitamin B complex 1 tab PO DAILY 12/04/19 12/04/19 History enoxaparin 90 mg SUBCUT Q24H #30 dose 12/05/19 Rx Inpatient Medication List Discontinued Medications Ascorbic Acid (Vitamin C) 500 mg PO DAILY [facility] Stop: 01/04/20 08:59 Last Admin: 12/05/19 09:33 Dose: 500 mg Documented by: [id number] Aspirin (Aspirin) 324 mg PO NOW STA Stop: 12/04/19 12:01 Last Admin: 12/04/19 12:06 Dose: 324 mg Documented by: [id number] Aspirin (Aspirin) 324 mg PO NOW STA Stop: 12/04/19 12:10 Last Admin: 12/04/19 12:14 Dose: Not Given Documented by: [id number] Aspirin (Ecotrin Ectab) 81 mg PO QAM [facility] Stop: 01/04/20 08:59 Last Admin: 12/05/19 09:33 Dose: 81 mg Documented by: [id number] Atorvastatin Calcium (Lipitor) 40 mg PO HS [facility] Stop: 01/03/20 20:59 Last Admin: 12/04/19 21:36 Dose: 40 mg Documented by: [id number] Enoxaparin Sodium (Lovenox) 90 mg SQ Q24H [facility] Stop: 01/03/20 17:59 Last Admin: 12/04/19 18:52 Dose: 90 mg Documented by: [id number] Gadobutrol (Gadavist 65ml) 6 ml IV ONCE PRN PRN Reason: Interaction Checking Stop: 12/08/19 21:00 Last Admin: 12/04/19 21:02 Dose: 6 ml Documented by: [id number] Heparin Sodium (Porcine) (Heparin Sod 100 Unit/Ml Flush) 5 ml FLUSH PRN PRN PRN Reason: Flush Stop: 01/04/20 00:44 Last Admin: 12/05/19 06:17 Dose: 5 ml Documented by: [id number] Ioversol (Optiray 320 125ml) 116 ml IV ONCE PRN PRN Reason: Interaction Checking Stop: 12/08/19 14:19 Last Admin: 12/04/19 14:20 Dose: 116 ml Documented by: [id number] Miscellaneous Information (Discharge, Stroke Patient) 1 ea N/A NOW STA Stop: 12/05/19 13:12 Last Admin: 12/05/19 13:59 Dose: Not Given Documented by: [id number] Morphine Sulfate (Ms Contin) 30 mg PO QPM [facility] Stop: 12/18/19 20:59 Last Admin: 12/04/19 21:37 Dose: 30 mg Documented by: [id number] Morphine Sulfate (Ms Contin) 15 mg PO QAM [facility] Stop: 12/19/19 08:59 Last Admin: 12/05/19 09:32 Dose: 15 mg Documented by: [id number] Multivitamins (Multivitamin Tab) 1 tab PO DAILY [facility] Stop: 01/04/20 08:59 Last Admin: 12/05/19 09:34 Dose: 1 tab Documented by: [id number] Oxycodone/Acetaminophen (Percocet 5mg/325mg) 1.5 tab PO Q4H PRN PRN Reason: Pain Stop: 12/18/19 15:47 Last Admin: 12/05/19 00:16 Dose: 1.5 tab Documented by: [id number] Admin: 12/04/19 16:50 Dose: 1.5 tab Documented by: [id number] Pantoprazole Sodium (Protonix) 40 mg PO DAILY [facility] Stop: 01/04/20 08:59 Last Admin: 12/05/19 09:32 Dose: 40 mg Documented by: [id number] Sennosides (Senokot) 8.6 mg PO BID [facility] Stop: 01/03/20 20:59 Last Admin: 12/05/19 09:34 Dose: Not Given Documented by: [id number] Admin: 12/04/19 21:36 Dose: 8.6 mg Documented by: [id number] Vitamin B Complex (Vitamin B Complex) 1 tab PO DAILY [facility] Stop: 01/04/20 08:59 Last Admin: 12/05/19 09:33 Dose: 1 tab Documented by: [id number] Vitamin D (Vitamin D3) 1,000 units PO DAILY [facility] Stop: 01/04/20 08:59 Last Admin: 12/05/19 09:33 Dose: 1,000 units Documented by: [id number] Zolpidem Tartrate (Ambien) 5 mg PO HS PRN PRN Reason: Sleep Stop: 01/03/20 20:59 Last Admin: 12/05/19 04:10 Dose: 5 mg Documented by: [id number] Description This is a 21 electrode EEG with a single channel dedicated to limited EKG. The electrodes were placed in accordance with the International 10-20 system. History: transient word finding difficulty Rx: none Start/Stop: 12:52pm/1:12pm Attending reading: Chyna Villagomez EEG Description: EEG background: Background was symmetric 8-10 Hz alpha rhythm with int ermittent. A brief well formed 8-9 Hz posterior dominant rhythm was observed. The EEG is continuous. There is variability and reactivity present. Activation and reactivity: Photic stimulation performed without any abnormalities noted. No photic driving observed. Hyperventilation was not performed. Sleep: Patient was drowsy but did not enter higher levels of sleep. Epileptiform discharges: No epileptiform discharges were observed. Rhythmic and periodic patterns: None Seizures: None Impression: This was a normal awake and drowsy EEG. No seizures or epileptiform discharges were seen. [facility] EEG Procedure Codes Indication for Procedure (1) TIA (transient ischemic attack): (2) Multiple sclerosis: Neurology Neurology: [id number] EEG include record awake & drowsy
== END 2019-12-05 14:48 | disposition home or self-care (01) ==
LOC: 2W 10:37 → ED 10:37 → SUATTDRO 13:32 → 2W 15:20 → 2N 12-05 00:10